=== PATIENT | female | born 2000 | race Caucasian/White ===

== ENCOUNTER 2024-03-21 10:00 | Outpatient (RCR) | payer OTHER, SELFPAY | END 2024-04-10 14:33 | disposition home or self-care (01) | LOC: HO.PT 10:00 | PROVIDERS: Visit Provider Obstetrics & Gynecology Female Pelvic Medicine and Reconstructive Surgery | DX: R10.2 Pelvic and perineal pain (principal) | CPT/HCPCS: 97110; 97112; 97140; 97161 ==